=== PATIENT | male | born 1960 | race Caucasian/White ===

== ENCOUNTER 2016-12-08 10:03 | Observation (INO) ==
[2016-12-08 11:00] LABS: Bilirubin,Urine Negative (Negative); Blood,Urine Negative (Negative); Clarity,Urine Clear (Clear); Color,Urine Yellow (Yellow); Glucose,Urine (UA) Normal (Normal); Ketones,Urine Negative (Negative); Leukocyte Esterase,Urine Negative (Negative); Nitrite,Urine Negative (Negative); PH,Urine 6.5 pH Units (5.0-8.0); Protein,Urine Negative (Neg-Trace); Specific Gravity,Urine 1.008 (1.010-1.025); Urobilinogen,Urine Normal (Normal)
--- NOTE | 2016-12-08 11:04 | Emergency Department Note ---
START Narrative - START START: I examined this patient and my medical decision-making was reviewed with the [employer]/PA/Advanced Practice Nurse/Resident Physician. I agree with the documented findings, disposition and treatment plan as described except to the extent set forth below.
--- NOTE | 2016-12-08 11:09 | Emergency Department Note ---
Disposition Clinical Impression: Failure of outpatient treatment Diverticulitis of intestine with perforation and abscess Qualifiers: Diverticulitis site: large intestine Diverticulitis bleeding: without bleeding Qualified Code(s): K57.20 - Diverticulitis of large intestine with perforation and abscess without bleeding Disposition: Admitted As Inpatient Condition: Good Time of Disposition: 15:09 Abdominal Pain HPI - General Chief Complaint: ED Abdominal Pain Stated Complaint: ABD Pain Time Seen by Provider: 12/08/16 10:14 Source: patient Nursing Notes Reviewed: Yes Vital Signs Reviewed: Yes - History of Present Illness HPI Narrative: Mr. Abraham, a 56yo male, presents from home by POV with concerns of left lower quadrant abdominal pain. Patient has a history of this and is currently being managed by Dr. Syed with by mouth antibiotics for diagnosis of diverticulitis with abscess tracking to his bladder. Patient notes that since last night, he has had left lower quadrant pain with any bumps in the vehicle. When this happened in the past, Dr. Syed increase the strength of his antibiotic. He is currently on Cipro and Flagyl. He did call Dr. Syed's office and left a message with the nurse and has not heard back yet. He states the next step is likely surgery. He has associated nausea. He also notes his stools are becoming progressively more dark. No history of GI bleed. No current anticoagulant or antiplatelet. No iron supplement. ROS: Positive: Left lower quadrant pain worsening on Cipro and Flagyl, nausea Negative: Fever, chills, vomiting, other abdominal pain, dyspnea, chest pain, back pain, urinary symptoms Pain Scale: 7 - Related Data Home Medications Medication Instructions Recorded Confirmed Albuterol Sulfate [Albuterol 2 puff IH Q6HR PRN 12/08/16 12/08/16 Inhaler] Beclomethasone Diprop 80mcg [Qvar 3 puff IH BID 12/08/16 12/08/16 80 mcg] Ciprofloxacin HCl [Cipro] 500 mg PO BID 12/08/16 12/08/16 Multivit-Min/FA/Lycopen/Lutein 1 tab PO DAILY 12/08/16 12/08/16 [Centrum Silver Men Tablet] Omeprazole [PriLOSEC] 20 mg PO DAILY 12/08/16 12/08/16 metroNIDAZOLE [Flagyl] 500 mg PO BID 06/19/17 06/19/17 Allergies Allergy/AdvReac Type Severity Reaction Status Date / Time No Known Allergies Allergy Verified 12/08/16 14:03 All systems ED: reviewed and negative except as stated. Abdominal Pain PMH - Past Medical History Medical history: Reports: asthma Male Surgical History: Reports: hip replacement Psychiatric history: Reports: no psych history - Social History Smoking status: Current every day smoker Alcohol use: Reports: occasionally Drug use: Reports: none Physical Exam Vital Signs Reviewed General: Patient is alert, oriented, and in no acute distress. HEENT: No facial asymmetry. Head is normocephalic and atraumatic. PERRLA. Trachea midline. Cardiovascular: Heart regular rate and rhythm without clicks, rubs, gallops, or murmurs. No JVD. PMI nondisplaced. Respiratory: Symmetric chest rise with good respiratory effort. Bilateral breath sounds are clear without wheezing, crackles, or rhonchi. Abdomen: Bowel sounds present normoactive x-4 quadrants. Abdomen is soft, nondistended. Tenderness in left lower quadrant with radiation to hypogastrium. Positive rising. Positive Naldo. Psych: Patient's affect is appropriate for situation. - General Limitations: no limitations General appearance: alert Course Course Narrative: Patient is comfortable at this time and denies need for analgesia. We will draw lab work including lactate as well as CT abdomen and pelvis with IV contrast. Lab work has returned with leukocytosis. Otherwise unremarkable; specifically negative lactate. CTs returned showing improvement in the patient's previously scanned abscess. Of concern, patient is symptomatic and has failed 2 week outpatient course of Cipro and Flagyl. I discussed this with on-call surgeon for [facility], Dr. Figueroa, who agrees to follow the patient. I discussed the patient with the admitting hospitalist, Dr. Workman, who agrees to accept the patient. We will place on empiric Zosyn at this time. Patient remains comfortable and stable. He has denied any need for analgesia throughout his stay. Vital Signs Temperature 98.3 F 12/08/16 10:10 Pulse Rate 73 12/08/16 10:10 Respiratory Rate 18 12/08/16 10:10 Blood Pressure 138/98 12/08/16 10:10 O2 Sat by Pulse Oximetry 95 12/08/16 10:10 Temperature 97.5 F L 12/08/16 14:43 Pulse Rate 63 12/08/16 14:43 Respiratory Rate 18 12/08/16 14:43 Blood Pressure 142/88 12/08/16 14:43 O2 Sat by Pulse Oximetry 97 12/08/16 14:43 Oxygen Delivery Oxygen Delivery Room Air Abdominal Pain - Lab Data Result diagrams: 12/08/16 11:15 12/08/16 11:15 Lab Results 12/08/16 12/08/16 12/08/16 Range/Units 10:21 11:15 11:15 WBC 16.4 H (4.3-11.1) K/mcL RBC 4.42 (4.19-5.50) M/mcL Hgb 13.6 (12.9-16.9) g/dL Hct 39.9 (37.5-50.1) % MCV 90.3 (83.0-100.0) fL MCH 30.8 (28.0-33.3) pg MCHC 34.1 (31.6-35.5) g/dL RDW 14.6 H (11.5-14.5) % Plt Count 290 (140-400) K/mcL MPV 9.6 (9.4-12.4) fL Immature Gran % 0.7 (0-4) % Seg Neutrophils % 77.7 % Lymphocytes % 14.1 % Monocytes % 5.9 % Eosinophils % 1.0 % Basophils % 0.6 % Neutrophils # 12.7 H (1.6-8.9) K/mcL Lymphocytes # 2.3 (0.6-4.6) K/mcL Monocytes # 1.0 (0.0-1.3) K/mcL Eosinophils # 0.2 (0.0-0.6) K/mcL Basophils # 0.1 (0.0-0.2) K/mcL Sodium 137 (136-145) mEq/L Potassium 3.5 (3.5-4.5) mEq/L Chloride 107 (98-109) mEq/L Carbon Dioxide 22 (19-29) mEq/L BUN 11 (8-26) mg/dL Creatinine 0.68 L (0.72-1.25) mg/dL Est GFR ( Amer) > 60 (> 60) Est GFR (Non-Af Amer) > 60 (> 60) BUN/Creatinine Ratio 16 (6-26) Glucose 103 H (70-99) mg/dL Calculated Osmolality 284 (280-300) Lactic Acid (0.5-2.2) mmol/L Calcium 9.0 (8.6-10.8) mg/dL Urine Color Yellow (Yellow) Urine Clarity Clear (Clear) Urine pH 6.5 (5.0-8.0) pH Units Ur Specific [place] 1.008 L (1.010-1.025) Urine Protein Negative (Neg-Trace) mg/dL Urine Glucose (UA) Normal (Normal) mg/dL Urine Ketones Negative (Negative) mg/dL Urine Blood Negative (Negative) Urine Nitrite Negative (Negative) Urine Bilirubin Negative (Negative) Urine Urobilinogen Normal (Normal) mg/dL Ur Leukocyte Esterase Negative (Negative) Ur Culture Indicated? NO (NO) 12/08/16 Range/Units 11:15 WBC (4.3-11.1) K/mcL RBC (4.19-5.50) M/mcL Hgb (12.9-16.9) g/dL Hct (37.5-50.1) % MCV (83.0-100.0) fL MCH (28.0-33.3) pg MCHC (31.6-35.5) g/dL RDW (11.5-14.5) % Plt Count (140-400) K/mcL MPV (9.4-12.4) fL Immature Gran % (0-4) % Seg Neutrophils % % Lymphocytes % % Monocytes % % Eosinophils % % Basophils % % Neutrophils # (1.6-8.9) K/mcL Lymphocytes # (0.6-4.6) K/mcL Monocytes # (0.0-1.3) K/mcL Eosinophils # (0.0-0.6) K/mcL Basophils # (0.0-0.2) K/mcL Sodium (136-145) mEq/L Potassium (3.5-4.5) mEq/L Chloride (98-109) mEq/L Carbon Dioxide (19-29) mEq/L BUN (8-26) mg/dL Creatinine (0.72-1.25) mg/dL Est GFR ( Amer) (> 60) Est GFR (Non-Af Amer) (> 60) BUN/Creatinine Ratio (6-26) Glucose (70-99) mg/dL Calculated Osmolality (280-300) Lactic Acid 0.8 (0.5-2.2) mmol/L Calcium (8.6-10.8) mg/dL Urine Color (Yellow) Urine Clarity (Clear) Urine pH (5.0-8.0) pH Units Ur Specific [place] (1.010-1.025) Urine Protein (Neg-Trace) mg/dL Urine Glucose (UA) (Normal) mg/dL Urine Ketones (Negative) mg/dL Urine Blood (Negative) Urine Nitrite (Negative) Urine Bilirubin (Negative) Urine Urobilinogen (Normal) mg/dL Ur Leukocyte Esterase (Negative) Ur Culture Indicated? (NO)
[2016-12-08 11:26] LABS: Basophils # 0.1 K/mcL (0.0-0.2); Basophils % 0.6 %; Eosinophils # 0.2 K/mcL (0.0-0.6); Hematocrit 39.9 % (37.5-50.1); Hemoglobin 13.6 g/dL (12.9-16.9); Immature Granulocytes % 0.7 % (0-4); Lymphocytes # 2.3 K/mcL (0.6-4.6); Lymphocytes % 14.1 %; Mean Corpuscular HGB Conc 34.1 g/dL (31.6-35.5); Mean Corpuscular Hemoglobin 30.8 pg (28.0-33.3); Mean Corpuscular Volume 90.3 fL (83.0-100.0); Mean Platelet Volume 9.6 fL (9.4-12.4); Monocytes % 5.9 %; Neutrophils # 12.7 K/mcL (1.6-8.9); Platelet Count 290 K/mcL (140-400); Red Blood Count 4.42 M/mcL (4.19-5.50); Red Cell Distribution Width 14.6 % (11.5-14.5); Segmented Neutrophils % 77.7 %
[2016-12-08 11:45] LABS: BUN/Creatinine Ratio 16 (6-26); Blood Urea Nitrogen 11 mg/dL (8-26); Carbon Dioxide 22 mEq/L (19-29); Chloride 107 mEq/L (98-109); Glucose 103 mg/dL (70-99); Osmolality,Calculated 284 (280-300); Potassium 3.5 mEq/L (3.5-4.5); Sodium 137 mEq/L (136-145); eGFR For African Americans > 60 (> 60); eGFR For Non-African Americans > 60 (> 60)
[2016-12-08] MEDS ORDERED: Piperacillin/Tazobactam 3.375 GM in D5% in Water (Mini-Bag+) 100 ML IVPB ONE (13:45)
[2016-12-08] MEDS ORDERED: Acetaminophen 325 MG TABLET PO PRN (15:32)
[2016-12-08] MEDS ORDERED: Naloxone 0.4 MG/ML INJ IVP PRN (15:32)
[2016-12-08] MEDS ORDERED: Ondansetron ODT 4 MG TAB.RAPDIS SL PRN (15:32)
[2016-12-08] MEDS ORDERED: *HR* HYDROcodone/Acet 5/325 mg TABLET PO PRN (15:32)
[2016-12-08] MEDS ORDERED: traMADol 50 MG TABLET PO PRN (16:03)
--- NOTE | 2016-12-08 16:18 | Internal Med History&Physical ---
<Laurent Workman - Last Filed: 12/08/16 20:27> Date of Encounter: 12/08/16 Internal Medicine - H&P: HPI History of present illness: Mr. Abraham is a 56 year old male Internal Medicine - H&P: Meds Albuterol Sulfate [Albuterol Inhaler] 2 puff IH Q6HR PRN 12/08/16 [History] Beclomethasone Diprop 80mcg [Qvar 80 mcg] 3 puff IH BID 12/08/16 [History] Ciprofloxacin HCl [Cipro] 500 mg PO BID 12/08/16 [History] Multivit-Min/FA/Lycopen/Lutein [Centrum Silver Men Tablet] 1 tab PO DAILY [History] Omeprazole [PriLOSEC] 20 mg PO DAILY 12/08/16 [History] metroNIDAZOLE [Flagyl] 500 mg PO BID 12/08/16 [History] Allergies acetaminophen Allergy (Severe, Verified 12/08/16 15:49) Hives Patient informed me that he was allergic to percocet and his doctor said to stay away from acetaminophen during admission assessment. All Systems PM: A 10-system review of systems was performed and is negative for pertinent findings except as documented above in the HPI. - Constitutional Vitals: Temp Pulse Resp BP Pulse Ox 97.5 F L 51 14 106/65 96 12/08/16 19:10 12/08/16 19:10 12/08/16 19:10 12/08/16 19:10 12/08/16 19:10 Internal Med - H&P Results - Labs CBC & Chem 7: 12/08/16 11:15 12/08/16 11:15 - Attending Attestation I examined this patient and my medical decision-making was reviewed with the Advanced Practice Nurse. I agree with the documented findings, disposition and treatment plan as described except to the extent set forth below. Patient reports his abdominal pain has resolved. He has a nontender. CT of the abdomen and pelvis was reviewed and shows diverticulitis with small amount of gas which has decreased since previous study in October 2016. Plan: Broad-spectrum IV antibiotic. Surgical consult. Clear liquid diet. Pain control. <Laura Guerrero - Last Filed: 12/08/16 22:59> Date of Encounter: 12/08/16 Time of Encounter: 16:12 Assessment and Plan (1) Diverticulitis of intestine with perforation and abscess Status: Chronic Patient with persistent abscess related to diverticulitis and has left lower quadrant, seen on CT. Patient has received Cipro, and Flagyl as an outpatient, however abscess persists. Vision has been able to tolerate by mouth, has normal appetite, and normal bowel movements. He denies any nausea, vomiting, or diarrhea. Her blood cell count is elevated to 16.4. Zosyn initiated every 8 hours. Surgery consulted and will see patient. Qualifiers: Diverticulitis site: large intestine Diverticulitis bleeding: without bleeding Qualified Code(s): K57.20 - Diverticulitis of large intestine with perforation and abscess without bleeding (2) Failure of outpatient treatment Status: Acute Patient was diagnosed with diverticulitis in August, was initiated on Augmentin at that time, continued to have problems and seen by Dr. Syed surgery, who started him on Cipro, and Flagyl. He has been found to have a left lower quadrant abscess extending from his colon to his bladder. Today's CT shows that it is improved, however still persists. Surgery consult. Antibiotics switched to Zosyn. (3) Asthma Status: Chronic Patient with diagnosis of asthma, denies any increased shortness of breath, wheezing, or coughing. He is not in exacerbation. Continue home dose of Qvar, and albuterol when necessary. Qualifiers: Asthma severity: mild intermittent Asthma complication type: uncomplicated Qualified Code(s): J45.20 - Mild intermittent asthma, uncomplicated (4) Smoker Status: Acute Patient smokes 1PPD. Discussed smoking cessation and offered encouragement. Smoking cessation education ordered. Nicotine patch ordered. (5) DVT prophylaxis Status: Acute anti-embolic stockings lovenox 40mg SQ daily Internal Medicine - H&P: HPI Chief complaint: abdominal pain Admitted From: Emergency Dept Plans for Post Hospital Care: Home History of present illness: Mr. Abraham is a 56 year old male with history of asthma and GERD presented to the emergency department today with complaints of left lower quadrant abdominal pain. Patient reports that he has had issues since August, he was diagnosed with diverticulitis and started on Augmentin at that time, he was referred to Dr. Syed to switch his antibiotics to Cipro, and Flagyl. CT showed diverticulitis with abscess at that time. Patient reports he has been on the Cipro and Flagyl, but he can tell that his abscess is not going away, as his pain has not gone away. He reports he is able to eat, appetite is good, denies any nausea or vomiting. He denies any diarrhea, or constipation, and reports he has regular bowel movements. He denies any fever, chills or sweats. He reports his pain is constant in his left lower quadrant, exacerbated by palpation or pressure, movement and relieved with pain medicine. Evaluation in the emergency department revealed an elevated white blood cell count of 16.4. UA was negative for infection, lactate was normal at 0.8. To the abdomen and pelvis showed inflammatory changes again seen extending between the proximal sigmoid colon and the left superior aspect of the bladder wall, in comparison to the prior exam on 12/08/16, small associated loculated collections of fluid and air are decreased in size, with the largest measuring 11 x 6 mm immediately adjacent to the bladder wall, no collections amenable to drainage are seen, no evidence of colovesicular fistula, moderate diverticulosis. On exam, patient alert and oriented, in no acute distress. Heart had regular rate and rhythm, lungs are clear bilaterally to auscultation abdomen was tender to deep palpation in the left lower quadrant, soft, normal bowel sounds. Past Med Surg Social Fam HX - Past Medical History Medical history: asthma Psychiatric history: no psych history - Past Surgical History Surgical History: hip replacement - Social History Smoking Status: Current every day smoker Smokeless Tobacco Status: No Alcohol use: occasionally Drug use: none - Family History Mother Adopted: Yes Name: Sydney Abraham Age: 78 Family Member Ethnicity: Non- Living Status: Cause of : Abdomenal aneurism Hx Family Cardiac Disorders: No Hx Family Respiratory Disorders: No Hx Family Cancer: No Hx Family GI Disorders: No Hx Family Genitourinary Disorders: No Hx Family Endocrine Disorder: No Hx Family Musculoskeletal Disorders: Yes (Osteoporosis) Hx Family Neuromuscular Disorders: No Hx Family Neurologic Disorders: No Hx Family HEENT Disorders: No Hx Family Autoimmune Disorders: No Hx Family Reproductive Disorders: No Hx Family Psychosocial Disorders: No Hx Family Medical Disorders: No Father Living Status: Hx Family Respiratory Disorders: Yes All Systems PM: A 10-system review of systems was performed and is negative for pertinent findings except as documented above in the HPI. - Constitutional Constitutional: no chills, no fever(s), no night sweats - EENT Eyes: no change in vision, no discharge, no pain, no photophobia Ears: no ear discharge, no ear pain, no tinnitus Nose, mouth and throat: no dysphagia, no nasal discharge, no neck pain, no sore throat - Cardiovascular Cardiovascular ROS IM: no chest pain, no diaphoresis, no dyspnea, no lightheadedness, no palpitations, no syncope - Respiratory Respiratory: no cough, no dyspnea, no wheezing, no excessive phlegm production - Gastrointestinal Gastrointestinal: abdominal pain, no diarrhea, no hematemesis, no hematochezia, no melena, no nausea, no vomiting - Musculoskeletal Musculoskeletal ROS IM: no numbness, no tingling - Integumentary Integumentary IM: no rash, no unusual bruising - Neurological Neurological ROS: no confusion, no convulsions, no focal weakness, no numbness, no tingling, no tremor(s) - Hematologic/Lymphatic Hematologic/Lymphatic: no easy bruising - Constitutional Vitals: Temp Pulse Resp BP Pulse Ox 97.5 F L 63 18 142/88 97 12/08/16 14:43 12/08/16 14:43 12/08/16 14:43 12/08/16 14:43 12/08/16 14:43 General appearance: Present: A&O X 3, pleasant, no acute distress - Head Head exam: Present: atraumatic, normocephalic - Eye Eye exam: Present: PERRL, conjuntiva pink, sclera anicteric Pupils: Present: PERRL - Neck Neck exam general surgery: Present: supple, trachea midline. Absent: lymphadenopathy - Respiratory Respiratory exam: Present: CTAB. Absent: accessory muscle use, rales, rhonchi, wheezes - Cardiovascular Cardiovascular exam: Present: RRR, +S1, +S2. Absent: diastolic murmur, gallop, rubs, systolic murmur - GI/Abdominal GI/Abdominal exam: Present: normal bowel sounds, soft, no peritoneal signs. Absent: distended, tenderness - Extremities Exam Extremities exam: Present: warm, radial pulses palpable and symetrical. Absent : calf tenderness, cyanotic, pedal edema - Neurological Exam Neurological exam: Present: CN II-XII intact, oriented X3, no focal deficits. Absent: pronater drift, facial droop, speech deficit - Skin Skin exam: Present: dry, intact Internal Med - H&P Results - Labs CBC & Chem 7: 12/08/16 11:15 12/08/16 11:15 Labs: All Lab Results (24 Hours) 12/08/16 12/08/16 12/08/16 Range/Units 10:21 11:15 11:15 WBC 16.4 H (4.3-11.1) K/mcL RBC 4.42 (4.19-5.50) M/mcL Hgb 13.6 (12.9-16.9) g/dL Hct 39.9 (37.5-50.1) % MCV 90.3 (83.0-100.0) fL MCH 30.8 (28.0-33.3) pg MCHC 34.1 (31.6-35.5) g/dL RDW 14.6 H (11.5-14.5) % Plt Count 290 (140-400) K/mcL MPV 9.6 (9.4-12.4) fL Immature Gran % 0.7 (0-4) % Seg Neutrophils % 77.7 % Lymphocytes % 14.1 % Monocytes % 5.9 % Eosinophils % 1.0 % Basophils % 0.6 % Neutrophils # 12.7 H (1.6-8.9) K/mcL Lymphocytes # 2.3 (0.6-4.6) K/mcL Monocytes # 1.0 (0.0-1.3) K/mcL Eosinophils # 0.2 (0.0-0.6) K/mcL Basophils # 0.1 (0.0-0.2) K/mcL Sodium 137 (136-145) mEq/L Potassium 3.5 (3.5-4.5) mEq/L Chloride 107 (98-109) mEq/L Carbon Dioxide 22 (19-29) mEq/L BUN 11 (8-26) mg/dL Creatinine 0.68 L (0.72-1.25) mg/dL Est GFR ( Amer) > 60 (> 60) Est GFR (Non-Af Amer) > 60 (> 60) BUN/Creatinine Ratio 16 (6-26) Glucose 103 H (70-99) mg/dL Calculated Osmolality 284 (280-300) Lactic Acid (0.5-2.2) mmol/L Calcium 9.0 (8.6-10.8) mg/dL Urine Color Yellow (Yellow) Urine Clarity Clear (Clear) Urine pH 6.5 (5.0-8.0) pH Units Ur Specific [place] 1.008 L (1.010-1.025) Urine Protein Negative (Neg-Trace) mg/dL Urine Glucose (UA) Normal (Normal) mg/dL Urine Ketones Negative (Negative) mg/dL Urine Blood Negative (Negative) Urine Nitrite Negative (Negative) Urine Bilirubin Negative (Negative) Urine Urobilinogen Normal (Normal) mg/dL Ur Leukocyte Esterase Negative (Negative) Ur Culture Indicated? NO (NO) 12/08/16 Range/Units 11:15 WBC (4.3-11.1) K/mcL RBC (4.19-5.50) M/mcL Hgb (12.9-16.9) g/dL Hct (37.5-50.1) % MCV (83.0-100.0) fL MCH (28.0-33.3) pg MCHC (31.6-35.5) g/dL RDW (11.5-14.5) % Plt Count (140-400) K/mcL MPV (9.4-12.4) fL Immature Gran % (0-4) % Seg Neutrophils % % Lymphocytes % % Monocytes % % Eosinophils % % Basophils % % Neutrophils # (1.6-8.9) K/mcL Lymphocytes # (0.6-4.6) K/mcL Monocytes # (0.0-1.3) K/mcL Eosinophils # (0.0-0.6) K/mcL Basophils # (0.0-0.2) K/mcL Sodium (136-145) mEq/L Potassium (3.5-4.5) mEq/L Chloride (98-109) mEq/L Carbon Dioxide (19-29) mEq/L BUN (8-26) mg/dL Creatinine (0.72-1.25) mg/dL Est GFR ( Amer) (> 60) Est GFR (Non-Af Amer) (> 60) BUN/Creatinine Ratio (6-26) Glucose (70-99) mg/dL Calculated Osmolality (280-300) Lactic Acid 0.8 (0.5-2.2) mmol/L Calcium (8.6-10.8) mg/dL Urine Color (Yellow) Urine Clarity (Clear) Urine pH (5.0-8.0) pH Units Ur Specific [place] (1.010-1.025) Urine Protein (Neg-Trace) mg/dL Urine Glucose (UA) (Normal) mg/dL Urine Ketones (Negative) mg/dL Urine Blood (Negative) Urine Nitrite (Negative) Urine Bilirubin (Negative) Urine Urobilinogen (Normal) mg/dL Ur Leukocyte Esterase (Negative) Ur Culture Indicated? (NO) - Diagnostic Studies CT scan - abdomen Additional comments: Abdomen/Pelvis CT 12/08/16 11:00 IMPRESSION: 1. Inflammatory changes are again seen extending between the proximal sigmoid colon and the left superior aspect of the bladder wall. In comparison to the prior exam, small associated loculated collections of fluid and air are decreased in size, with the largest measuring 11 x 6 mm immediately adjacent to the bladder wall. No collections amenable to percutaneous drainage are seen. No air is seen in the bladder lumen to specifically suggest a patent colovesical fistula. 2. Moderate diverticulosis. D/ / 12/08/2016 13:03:13 Babatunde Carmichael MD / supaay Interpreting Provider: Babatunde Carmichael MD
--- NOTE | 2016-12-08 18:10 | General Surgery Consult Note ---
Date of Encounter: 12/11/16 Time of Encounter: 18:07 Assessment and Plan (1) Diverticulitis of intestine with perforation and abscess Status: Chronic I explained to the patient that I personally reviewed the CT scan images and report. Ears that the abscess collections actually continued to decrease in size despite his new also worsened pelvic pain recurred yesterday. I think he is continuing to improve and I agree with antibiotics and current diet. Will follow with you and I explained to the patient that I am hopeful that the abscess will continue to resolve without having any type of surgical intervention at this time. Qualifiers: Diverticulitis site: large intestine Diverticulitis bleeding: without bleeding Qualified Code(s): K57.20 - Diverticulitis of large intestine with perforation and abscess without bleeding History of Present Illness Consult date: 12/08/16 Reason for consult: abdominal pain Requesting physician: Laura Guerrero History of present illness: the patient is a 56 year old male known to my service. He has a history of perforated sigmoid diverticulitis with an abscess that is been treated with antibiotics. He states that today he had the onset of lower abdominal pain but denies any diarrhea or constipation and denies any nausea or vomiting. He states that his pain is under control at this time and denies any diarrhea or constipation. He denies any pain with urination or bowel movements. He denies any fever or chills and because of the worsening lower abdominal/pelvic pain he presented to the emergency room for further evaluation. Past Med Surg Social Fam HX - Past Medical History Medical history: asthma Psychiatric history: no psych history - Past Surgical History Surgical History: hip replacement - Social History Smoking Status: Current every day smoker Smokeless Tobacco Status: No Alcohol use: occasionally Drug use: none - Family History Mother Adopted: Yes Name: Sydney Abraham Age: 78 Family Member Ethnicity: Non- Living Status: Cause of : Abdomenal aneurism Hx Family Cardiac Disorders: No Hx Family Respiratory Disorders: No Hx Family Cancer: No Hx Family GI Disorders: No Hx Family Genitourinary Disorders: No Hx Family Endocrine Disorder: No Hx Family Musculoskeletal Disorders: Yes (Osteoporosis) Hx Family Neuromuscular Disorders: No Hx Family Neurologic Disorders: No Hx Family HEENT Disorders: No Hx Family Autoimmune Disorders: No Hx Family Reproductive Disorders: No Hx Family Psychosocial Disorders: No Hx Family Medical Disorders: No Father Living Status: Hx Family Respiratory Disorders: Yes Medications and Allergies Albuterol Sulfate [Albuterol Inhaler] 2 puff IH Q6HR PRN 12/08/16 [History] Beclomethasone Diprop 80mcg [Qvar 80 mcg] 3 puff IH BID 12/08/16 [History] Ciprofloxacin HCl [Cipro] 500 mg PO BID 12/08/16 [History] Multivit-Min/FA/Lycopen/Lutein [Centrum Silver Men Tablet] 1 tab PO DAILY [History] Omeprazole [PriLOSEC] 20 mg PO DAILY 12/08/16 [History] metroNIDAZOLE [Flagyl] 500 mg PO BID 12/08/16 [History] Allergies acetaminophen Allergy (Severe, Verified 12/08/16 15:49) Hives Patient informed me that he was allergic to percocet and his doctor said to stay away from acetaminophen during admission assessment. Review of Systems All systems PM: reviewed and no additional remarkable complaints except as stated All systems PM: A 10-system review of systems was performed and is negative for pertinent findings except as documented above in the HPI. General Surgery Exam Initial Vital Signs Temp Pulse Resp BP Pulse Ox 98.3 F 73 18 138/98 95 12/08/16 10:10 12/08/16 10:10 12/08/16 10:10 12/08/16 10:10 12/08/16 10:10 - General physical appearance well developed, well nourished, no distress - Eyes PERRL, normal ocular movement - Respiratory normal expansion, normal respiratory effort, clear to auscultation - Cardiovascular Cardiovascular exam: Present: RRR, no murmurs/rubs/gallops - Abdomen Abdomen general surgery: Present: bowel sounds present, soft, tender (mild tendernes in the pelvis to moderate palpation.) - Neurologic Present: CN 2-12 grossly intact - Musculoskeletal Present: other (No clubbing, cyanosis, or edema) Exam Initial Vital Signs Temp Pulse Resp BP Pulse Ox 98.3 F 73 18 138/98 95 12/08/16 10:10 12/08/16 10:10 12/08/16 10:10 12/08/16 10:10 12/08/16 10:10 Results - Labs 12/08/16 11:15 12/08/16 11:15 Abnormal lab results WBC 16.4 K/mcL (4.3-11.1) H 12/08/16 11:15 RDW 14.6 % (11.5-14.5) H 12/08/16 11:15 Neutrophils # 12.7 K/mcL (1.6-8.9) H 12/08/16 11:15 Creatinine 0.68 mg/dL (0.72-1.25) L 12/08/16 11:15 Glucose 103 mg/dL (70-99) H 12/08/16 11:15 Ur Specific Stoddard 1.008 (1.010-1.025) L 12/08/16 10:21 All other labs normal. Consult Discharge Plan - Plan Referrals: Jessica Espinoza CNP [Primary Care Provider] - Han Syed MD [Partnered Physician] -
[2016-12-08 19:11] VITALS: BP 106/65
[2016-12-08] MEDS ORDERED: Piperacillin/Tazobactam 3.375 GM in D5% in Water (Mini-Bag+) 100 ML IVPB SCH (21:00)
[2016-12-08] MEDS ORDERED: Beclomethasone 80mcg MDI IH SCH (22:00)
--- NOTE | 2016-12-08 22:27 | Discharge Summary ---
Date of Encounter: 12/08/16 Time of Encounter: 22:22 - Discharge Diagnosis (1) Diverticulitis of intestine with perforation and abscess Priority: Primary Status: Chronic Qualifiers: Diverticulitis site: large intestine Diverticulitis bleeding: without bleeding Qualified Code(s): K57.20 - Diverticulitis of large intestine with perforation and abscess without bleeding (2) Failure of outpatient treatment Priority: Secondary Status: Acute (3) Asthma Priority: Secondary Status: Chronic Qualifiers: Asthma severity: mild intermittent Asthma complication type: uncomplicated Qualified Code(s): J45.20 - Mild intermittent asthma, uncomplicated (4) Smoker Priority: Secondary Status: Acute (5) DVT prophylaxis Priority: Secondary Status: Acute - Discharge Medications Home Medications: Albuterol Sulfate [Albuterol Inhaler] 2 puff IH Q6HR PRN 12/08/16 [History] Beclomethasone Diprop 80mcg [Qvar 80 mcg] 3 puff IH BID 12/08/16 [History] Ciprofloxacin HCl [Cipro] 500 mg PO BID 12/08/16 [History] Multivit-Min/FA/Lycopen/Lutein [Centrum Silver Men Tablet] 1 tab PO DAILY [History] Omeprazole [PriLOSEC] 20 mg PO DAILY 12/08/16 [History] metroNIDAZOLE [Flagyl] 500 mg PO BID 12/08/16 [History] Allergies/Adverse Reactions: Allergies acetaminophen Allergy (Severe, Verified 12/08/16 15:49) Hives Patient informed me that he was allergic to percocet and his doctor said to stay away from acetaminophen during admission assessment. Date of admission: 12/08/16 13:55 Primary care physician: Jessica Espinoza CNP Consults: 12/08/16 15:40 Consult to Nutrition [CONS] Routine Comment: Consulting Provider: NUTRITION Reason for Dietary Consult: MST Score Discharging clinician: Laura Guerrero - Patient Status Disposition: Home, Self-Care Condition: Good Functional capacity at discharge: independent ambulation - Discharge Instructions Follow Up With: Jessica Espinoza CNP [Primary Care Provider] - Han Syed MD [Partnered Physician] - - Diet and Activity Activity: resume usual activities as tolerated Diet: advance to your usual diet Interval History: Patient presented with concerns of worsening abdominal abscess due to LLQ pain. He had been receiving cipro and flagyl as an outpatient and following with Dr. Syed. CT of abdomen/pelvis showed improving abscess. Patient was given zosyn and consult to surgery. Dr. Syed assessed patient and does not plan for surgery. Plan was for patient to spend the night for observation and continue zosyn for known complicated diverticulitis with abscess, patient desires to leave AMA. Risks have been explained to patient and he still desires to leave. Hospital course: Mr. Abraham is a 56 year old male - Time Spent with Patient Total time spent providing and/or coordinating discharge services: Less than 30 minutes - Constitutional Vitals: Temp Pulse Resp BP Pulse Ox 97.5 F L 51 14 106/65 96 12/08/16 19:10 12/08/16 19:10 12/08/16 19:10 12/08/16 19:10 12/08/16 19:10 General appearance: Present: A&O X 3, pleasant, no acute distress - Head Head exam: Present: atraumatic, normocephalic - Eye Eye exam: Present: PERRL, conjuntiva pink, sclera anicteric Pupils: Present: PERRL - Neck Neck exam general surgery: Present: supple, trachea midline. Absent: lymphadenopathy - Respiratory Respiratory exam: Present: CTAB. Absent: accessory muscle use, rales, rhonchi, wheezes - Cardiovascular Cardiovascular exam: Present: RRR, +S1, +S2. Absent: diastolic murmur, gallop, rubs, systolic murmur - GI/Abdominal GI/Abdominal exam: Present: normal bowel sounds, soft, no peritoneal signs. Absent: distended, tenderness - Extremities Exam Extremities exam: Present: warm, radial pulses palpable and symetrical. Absent : calf tenderness, cyanotic, pedal edema - Neurological Exam Neurological exam: Present: CN II-XII intact, oriented X3, no focal deficits. Absent: pronater drift, facial droop, speech deficit - Skin Skin exam: Present: dry, intact
[2016-12-09] MEDS ORDERED: 0.9 % Sodium Chloride 1,000 ML IVC SCH (00:01)
[2016-12-09] MEDS ORDERED: *HR* Enoxaparin 40 MG/0.4 ML SYRINGE SQ SCH (07:00)
[2016-12-09] MEDS ORDERED: Nicotine 21 MG PATCH.TD24 TD SCH (09:00)
== END 2016-12-08 22:20 | disposition home or self-care (01) ==
LOC: EMEROO 10:03 → 3ANU 10:03
PROVIDERS: ADMIT Internal Medicine; ATTEND Internal Medicine

== ENCOUNTER 2017-01-30 09:53 | Inpatient (IN) ==
[2017-01-30] MEDS ORDERED: Lidocaine -MPF 4% 5 ML AMPUL ONE (10:03)
[2017-01-30] MEDS ORDERED: Ondansetron 4 MG/2 ML VIAL ONE (10:03)
[2017-01-30] MEDS ORDERED: *HR* FentaNYL (PF) 100 MCG/2 ML VIAL ONE ×2 (10:03→15:00)
[2017-01-30] MEDS ORDERED: *HR* Rocuronium Bromide 50 MG/5 ML VIAL ONE ×2 (10:03→12:54)
[2017-01-30] MEDS ORDERED: *HR* Midazolam HCl 2 MG/2 ML VIAL ONE (10:03)
[2017-01-30] MEDS ORDERED: Dexamethasone 4 MG/ML VIAL ONE (10:03)
[2017-01-30] MEDS ORDERED: *HR* Phenylephrine 10 MG/ML VIAL ONE (10:03)
[2017-01-30] MEDS ORDERED: *HR* Propofol 200 MG/20 ML VIAL IVP ONE ×2 (10:03→15:53)
[2017-01-30] MEDS ORDERED: Lidocaine -MPF 2% 2 ML VIAL ONE (10:03)
[2017-01-30] MEDS ORDERED: EPHEDrine 50 MG/ML VIAL ONE (10:03)
[2017-01-30] MEDS ORDERED: *HR* Remifentanil 2 MG VIAL IVP ONE ×2 (10:04→13:43)
[2017-01-30] MEDS ORDERED: cefOXitin 2,000 MG in D5% in Water (Mini-Bag+) 100 ML IVPB ONE (10:10)
[2017-01-30] MEDS ORDERED: Lidocaine -MPF 1% 2 ML VIAL ID ONE (10:10)
[2017-01-30] MEDS ORDERED: Albuterol 2.5 MG/3 ML NEBULIZER IH ONE (10:11)
--- NOTE | 2017-01-30 10:22 | Anesthesia Evaluation PreOp ---
Date of Encounter: 01/30/17 Time of Encounter: 10:19 - Past History Planned Operation: Lap. 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 HX Other Medical History: GERD Anesthesia History: No Prior Anesthetic Complications, Past Anesthesia (Left THR , colonoscopy) Alcohol Use: occasionally Drug use: none Medications and Allergies Albuterol Sulfate [Albuterol Inhaler] 2 puff IH Q6HR PRN 12/08/16 [History] Beclomethasone Diprop 80mcg [Qvar 80 mcg] 3 puff IH BID 12/08/16 [History] Ciprofloxacin HCl [Cipro] 500 mg PO BID 12/08/16 [History] Multivit-Min/FA/Lycopen/Lutein [Centrum Silver Men Tablet] 1 tab PO DAILY [History] Omeprazole [PriLOSEC] 20 mg PO DAILY 12/08/16 [History] metroNIDAZOLE [Flagyl] 500 mg PO BID 12/08/16 [History] Allergies acetaminophen Allergy (Severe, Verified 12/08/16 15:49) Hives Patient informed me that he was allergic to percocet and his doctor said to stay away from acetaminophen during admission assessment. - Meds/Allergy Pre-op Review Medications Reviewed: Yes Allergies Reviewed: Yes Beta Blockers on Current Med List: No Anesthesia Results - Labs Laboratory Tests 01/26/17 01/26/17 10:45 10:45 WBC 14.8 H Hgb 13.6 Hct 42.0 Plt Count 349 Sodium 140 Potassium 4.1 Chloride 109 Carbon Dioxide 22 BUN 15 Creatinine 0.69 L Anesthesia Exam O2 Sat Height 1.73 m Height 1.73 m Weight 79.379 kg Weight 79.379 kg O2 Sat by Pulse Oximetry 96 Vital Signs Temp Pulse Resp BP Pulse Ox 98.2 F 88 18 115/82 96 01/30/17 10:09 01/30/17 10:01/30/17 10:01/30/17 10:01/30/17 10:09 Height: 5'8'' Weight: 175# NPO (# of Hours): > 8 hrs Pain Scale: 0 Pain Scale Used: Numeric (1 - 10) - HEENT Pupil (Motor): Pupils equal, EOMI Mallampati: II Teeth: Normal Oral Opening: Greater than 3 - FOREIGN LANGUAGE PROFESSOR LOC: Oriented [employer]EIGN LANGUAGE PROFESSOR Motor: Normal RUE, Normal LUE, Normal RLE, Normal LLE, Normal Face FOREIGN LANGUAGE PROFESSOR Sensory: Normal: RUE, LUE, RLE, LLE, Face - Cardiac Rhythm: Regular Murmur: None JVD: No Carotid Bruit: No - Pulmonary Breath Sounds: bilateral Clear Respiratory Effort: Symmetrical Anesthesia Assess/Plan ASA Score: 2 Modified Iona Scale for Level of Consciousness: Cooperative, oriented, and tranquil Anesthetic Plan: General Autologous Blood: Yes Monitoring Plan: Standard Monitors Recovery Plan: PACU
--- NOTE | 2017-01-30 10:27 | History & Physical Report ---
Date of Encounter: 01/30/17 Time of Encounter: 10:27 24 Hour HP Update - Instructions Instructions: If the History and Physical is less than 30 days old and was completed prior to A.M. admission and or procedure and has NOT been updated on calendar day of procedure please complete this update prior to performing procedure. - Update Patient reports changes in Medical Condition: No Changes in examination, assessment, or condition: No Changes in Medication: No Preop tests/diagnostics Reviewed: Yes Pre-Op MRSA Screen: Negative Surgery Remains Indicated: Yes Consent for Planned Operative Procedure(s) Verified: Yes - Pre-Operative Checklist Preoperative Checklist Indicated: No Prophylactic Antibiotic Ordered: Yes Home Medications Include Beta Hardik: No Beta Hardik Taken Today (Day of Surgery): No Beta Hardik Taken Yesterday (Day Prior to Surgery): No Is VTE Prophylaxis Indicated?: NO
[2017-01-30] MEDS ORDERED: CefOXitin 1,000 MG VIAL ONE (10:30)
[2017-01-30] MEDS: Ringers Solution, Lactated 1,000 ML IVC SCH ×2 (10:31→13:26)
[2017-01-30] MEDS ORDERED: Albumin Human 5% 0 GM/0 ML VIAL ONE (10:36)
[2017-01-30] MEDS ORDERED: *HR* Labetalol 20 MG/4 ML SYRINGE IVP PRN (12:38)
[2017-01-30] MEDS ORDERED: *HR* Promethazine 25 MG/ML VIAL IVP PRN (12:38)
[2017-01-30] MEDS ORDERED: Ketorolac 30 MG/ML VIAL ONE (14:14)
[2017-01-30] MEDS ORDERED: *HR* HYDROmorphone 2 MG/ML SYRINGE ONE (14:14)
[2017-01-30] MEDS ORDERED: Neostigmine Methylsulfate 3 MG/3 ML SYRINGE ONE (14:17)
[2017-01-30] MEDS ORDERED: Ondansetron 4 MG/2 ML VIAL IVP PRN ×2 (15:12→16:51)
[2017-01-30] MEDS ORDERED: Naloxone 0.4 MG/ML INJ IVP PRN (15:12)
[2017-01-30] MEDS ORDERED: 0.9 % Sodium Chloride 1,000 ML IVC SCH (15:15)
[2017-01-30] MEDS ORDERED: *HR* HYDROmorphone (PF) 1 MG/ML SYRINGE IVP PRN (15:16)
[2017-01-30] MEDS: *HR* HYDROmorphone (PF) 1 MG/ML SYRINGE IVP PRN ×4 (15:22→16:15)
--- NOTE | 2017-01-30 15:28 | Operative Note ---
Date of procedure: 01/30/17 Pre-op diagnosis: Sigmoid diverticulitis with abscess Post-op diagnosis: same Procedure: Laparoscopic assisted sigmoid resection. Implants: 19 FR mike x 1 Anesthesia: ZHOU Surgeon: Han Syed Rack Cleaner Other: CARMEN Jones Tourniquet Time (Minutes): 80 Specimen: anastamotic rings, sigmid colon Condition: stable Disposition: PACU Procedure in Detail: Date of surgery: 01/30/17 After properly identifying the patient, the patient was brought to the operating room and placed in the supine position. After proper IV sedation was achieved followed by general endotracheal intubation, the patient's abdomen was prepped and draped in normal sterile fashion. A timeout was performed noting the patient's name and type of procedure to be performed. The patient was placed in the low lithotomy position and the perianal area was also prepped and draped in a normal fashion. An infraumbilical vision was made with a 15 blade scalpel (1cm length) followed by dissection through the rectus fascia and entry into the abdomen. A 12 mm port was placed through the incision and the abdomen was insufflated with carbon dioxide. A laparoscopic camera was placed through the port which showed no injury and a suprapubic 5 mm port and a left lower quadrant 5 mm port were placed under direct camera visualization. Visualization of the patient's left lower quadrant demonstrated a very adherent sigmoid segment against the sidewall. This was very firm and careful blunt dissection and Bovie cauterization was able to partially dissect a portion of the adherent sigmoid segment from the sidewall attachment. Because of the density of the adhesions the decision was made to go ahead and dissect the descending colon away from the sidewall attachments. A xiphoid 5 mm port and a right upper quadrant 5 mm port were then placed under visualization and the descending colon was retracted medially which allowed for dissection of the white line of Toldt away from the sidewall. This was carried up to the splenic flexure which was also dissected free with Bovie cauterization and utilization of a laparoscopic LigaSure. A portion of the omentum was dissected off the splenic flexure as well, allowing the distal transverse colon to be free and allowing easy mobility and medial rotation. After this was confirmed the decision was made to go ahead and convert this to the open procedure. All ports were then removed and a 15 blade scalpel was used to make an incision several centimeters above the umbilicus extending inferiorly to the pubic symphysis connecting the 2 laparoscopic incisions (the subumbilical and the suprapubic site). A Bookwalter was brought to the operative field and used to retract the fascia laterally. The adherent sigmoid segment was identified and dissected free from the sidewall with blunt dissection and Bovie cauterization. The abscess cavity was encountered with drainage of exudate which was immediately suctioned. The sigmoid colon and rectosigmoid junction was identified and noted to be free of disease and was transected with a KAUSHAL stapler. The thickened and dense sigmoid was retracted superiorly and the mesentery close to the bowel wall was transected with a handheld LigaSure. This was carried up towards the proximal sigmoid to an area of normal appearing bowel. The sigmoid colon at this level was then transected with a KAUSHAL stapler. The intervening segment was then removed from the operative field and submitted to pathology. The epiploic tissue surrounding the descending colonic stump was freed with Bovie cauterization and the decision was made to attempt a stapled anastomosis by transecting the descending colonic stapleline with Bovie cauterization and creating a pursestring with a 2-0 Prolene suture. Sizers were placed within the lumen which demonstrated that a 29-Mongolian EEA stapler would be appropriate. This was brought onto the operative field. And anvil was detached from the device in place within the lumen of the bowel and the purse-string was tied. The EEA stapler was then introduced through the anus and the male end was extruded above the level of the rectal staple line along the antimesenteric border. The anvil was connected and the EEA stapler was then retracted to its base and fired/stapled. The EEA stapler was withdrawn which demonstrated 2 intact anastomotic rings were submitted to pathology. The pelvis was then filled with normal saline solution containing Mefoxin and air was then introduced through the anus while the descending colon was clamped by hand which did not show any evidence of anastomotic leak i.e. no evidence of "bubbling." The abdomen was then irrigated once again with normal saline solution containing Mefoxin and the decision was made to place a 19- Mongolian Mike drain within the abdomen near the staple line. Seprafilm was placed within the abdomen and the abdominal wall fascia was closed with a running #1 looped PDS suture. The subcutaneous tissue was then reapproximated with 2-0 Vicryl sutures. The incision was then packed with quarter-inch plain Nu Gauze. The remaining 5 mm port sites were closed with johanna. Needle, sponge, instrument counts were correct 2 and the midline incision was covered with 4 x 4's. The patient was aroused from IV sedation, extubated in the operating room without complication, and transported to the recovery room in stable condition.
[2017-01-30] MEDS ORDERED: Piperacillin/Tazobactam 3.375 GM in D5% in Water (Mini-Bag+) 100 ML IVPB SCH (16:00)
--- NOTE | 2017-01-30 16:29 | Anesthesia Evaluation Post Op ---
Date of Encounter: 01/30/17 Time of Encounter: 16:27 - Vital Signs Vital Signs: Vital Signs/O2 Sat/Glucose, Most Current Temp Pulse Resp BP Pulse Ox 01/30/17 16:07 98.3 F 79 16 118/87 93 01/30/17 15:57 77 16 117/80 93 01/30/17 15:47 75 16 125/85 92 01/30/17 15:37 98.5 F 91 16 136/82 93 01/30/17 15:27 73 16 136/84 93 01/30/17 15:17 84 18 143/88 95 01/30/17 15:07 98.6 F 81 16 147/93 100 - Lungs Lungs: Clear Ascult./Percussion - Airway Airway: Non-obstructed - Cardiovascular Regular Rate - Mental Status Mental Status: Alert & Oriented, Answers Appropriately - Pain Pain Scale: 6 Pain Scale used: Numeric (1 - 10) - Nausea Vomiting Nausea Vomiting: Not Present - Hydration Hydration: Ice chips, Marks catheter - Discharge PostOp Status: Transfer Patient to floor Anes Supervising Prov Stmt: Pt seen/evaluated, VSS and pt has met criteria for discharge to floor. - MD Tania
[2017-01-30] MEDS ORDERED: Ketorolac 30 MG/ML VIAL IM SCH (18:00)
[2017-01-30] MEDS: Ketorolac 30 MG/ML VIAL IM SCH ×2 (18:24→23:58)
[2017-01-30] MEDS: 0.9 % Sodium Chloride 1,000 ML IVC SCH (18:24)
[2017-01-30] MEDS: Piperacillin/Tazobactam 3.375 GM in D5% in Water (Mini-Bag+) 100 ML IVPB SCH (23:55)
[2017-01-31] MEDS: 0.9 % Sodium Chloride 1,000 ML IVC SCH ×2 (04:25→15:06)
[2017-01-31] MEDS: Ketorolac 30 MG/ML VIAL IM SCH (05:45)
[2017-01-31 07:50] LABS: BUN/Creatinine Ratio 26 (6-26); Blood Urea Nitrogen 18 mg/dL (8-26); Calcium 9.1 mg/dL (8.6-10.8); Carbon Dioxide 22 mEq/L (19-29); Chloride 107 mEq/L (98-109); Glucose 121 mg/dL (70-99); Magnesium 1.5 mg/dL (1.6-2.6); Osmolality,Calculated 289 (280-300); Potassium 4.3 mEq/L (3.5-4.5); Sodium 138 mEq/L (136-145); eGFR For African Americans > 60 (> 60); eGFR For Non-African Americans > 60 (> 60)
[2017-01-31 08:06] LABS: Basophils % 0.1 %; Hematocrit 38.1 % (37.5-50.1); Hemoglobin 12.5 g/dL (12.9-16.9); Immature Granulocytes % 0.7 % (0-4); Lymphocytes # 1.1 K/mcL (0.6-4.6); Lymphocytes % 5.2 %; Mean Corpuscular HGB Conc 32.8 g/dL (31.6-35.5); Mean Corpuscular Hemoglobin 30.4 pg (28.0-33.3); Mean Corpuscular Volume 92.7 fL (83.0-100.0); Mean Platelet Volume 10.2 fL (9.4-12.4); Monocytes # 1.4 K/mcL (0.0-1.3); Monocytes % 6.9 %; Neutrophils # 18.2 K/mcL (1.6-8.9); Platelet Count 300 K/mcL (140-400); Red Blood Count 4.11 M/mcL (4.19-5.50); Red Cell Distribution Width 13.5 % (11.5-14.5); Segmented Neutrophils % 87.1 %
[2017-01-31] MEDS: Pantoprazole 40 MG VIAL IVP SCH (08:24)
[2017-01-31] MEDS: Piperacillin/Tazobactam 3.375 GM in D5% in Water (Mini-Bag+) 100 ML IVPB SCH ×2 (08:24→15:09)
[2017-01-31] MEDS ORDERED: Pantoprazole 40 MG VIAL IVP SCH (09:00)
--- NOTE | 2017-01-31 09:54 | General Surgery Progress Note ---
Date of Encounter: 01/31/17 Time of Encounter: 09:50 - Assessment and Plan (1) Diverticulitis of intestine with perforation and abscess Current Visit: No Status: Chronic POD #1 Laparoscopic assisted sigmoid resection NPO except ice chips while awaiting return of bowel function IV fluids- 100ml/hour IV antibiotics- Zosyn for contamination Supportive care/pain control Increase actvitity and ambulate hallways Wound care- daily packing to midline Continue EDWIGE drain IS every 1 hour while awake PPI therapy daily Remove ott catheter today Repeat am labs Qualifiers: Diverticulitis site: large intestine Diverticulitis bleeding: without bleeding Qualified Code(s): K57.20 - Diverticulitis of large intestine with perforation and abscess without bleeding (2) Asthma Current Visit: No Status: Chronic Duonebs Q6 hours IS every 1 hour while awake Qualifiers: Asthma severity: mild intermittent Asthma complication type: uncomplicated Qualified Code(s): J45.20 - Mild intermittent asthma, uncomplicated (3) DVT prophylaxis Current Visit: No Status: Acute Heparin 5,000 units SQ twice daily for DVT prophylaxis EPCDs to bilateral lower extremities for DVT prophylaxis Ambulate hallways TID with assistance Subjective Patient reports: no new complaints, no flatus, no bowel movement, afebrile, other (Patient reports being up to chair for 1 hour this morning. Pain well controlled.) Objective Vital Signs - Last 8 Hours Temp Pulse Resp BP Pulse Ox 01/31/17 07:56 98.2 F 67 16 108/69 94 01/31/17 03:21 97.9 F 59 16 98/60 94 Intake and Output 01/30/17 01/31/17 01/31/17 23:59 07:59 15:59 Intake Total 0 / 0 1100 / 1100 0 / 0 Output Total 40 / 40 520 / 520 Balance -40 / -40 580 / 580 0 / 0 Intake: IV Fluids 1100 / 1100 0.9 % Sodium Chloride 1, 1000 / 1000 000 ML @ 100 mls/hr IVC . Q10H RUMA Rx#:[id number] Zosyn 3.375 GM In 100 / 100 Dextrose 5% (Minibag+) 100 ML 100 ML @ 25 mls/hr IVPB Q8HR URMA Rx#: [id number] Oral 0 / 0 0 / 0 0 / 0 Output: Urine 0 / 0 Catheter 450 / 450 Wound Drainage 40 / 40 70 / 70 Right Abdomen 40 / 40 70 / 70 Other: Meal NPO NPO Percent of Meal Consumed 0% 0% # Bowel Movements 0 Weight 79.4 kg Blood Glucose* 143 113 Patient Weight 01/31/17 23:59 Weight 79.4 kg - General physical appearance well developed, well nourished, no distress - Eyes normal ocular movement - ENT normal mucosa, atraumatic, normocephalic - Neck Neck exam: trachea midline - Respiratory normal respiratory effort, clear to auscultation - Cardiovascular Cardiovascular exam: Present: RRR - Abdomen Abdomen: Present: bowel sounds present (hypoactive), soft, tender (expected post -operative tenderness), wound (Midline with small amount of serousang. drainage noted (1/4 inch packing); EDWIGE drain to bulb suction with serousang. drainage noted (110ml noted since surgery) ) - Incision Incision: Present: serosanguinous, open (Midline with 6 open area with 1/4 inch packing ) - Genitourinary other (ott catheter to SD with clear yellow urine noted) - Neurologic CN 2-12 grossly intact - Psychiatric oriented to time, oriented to person, oriented to place, speech is normal, memory intact - Labs 01/31/17 07:10 01/31/17 07:10 Diabetes panel 01/31/17 Range/Units 07:10 Sodium 138 (136-145) mEq/L Potassium 4.3 (3.5-4.5) mEq/L Chloride 107 (98-109) mEq/L Carbon Dioxide 22 (19-29) mEq/L BUN 18 (8-26) mg/dL Creatinine 0.69 L (0.72-1.25) mg/dL Glucose 121 H (70-99) mg/dL Calcium 9.1 (8.6-10.8) mg/dL Calcium panel 01/31/17 Range/Units 07:10 Calcium 9.1 (8.6-10.8) mg/dL Pituitary panel 01/31/17 Range/Units 07:10 Sodium 138 (136-145) mEq/L Potassium 4.3 (3.5-4.5) mEq/L Chloride 107 (98-109) mEq/L Carbon Dioxide 22 (19-29) mEq/L BUN 18 (8-26) mg/dL Creatinine 0.69 L (0.72-1.25) mg/dL Glucose 121 H (70-99) mg/dL Calcium 9.1 (8.6-10.8) mg/dL Adrenal panel 01/31/17 Range/Units 07:10 Sodium 138 (136-145) mEq/L Potassium 4.3 (3.5-4.5) mEq/L Chloride 107 (98-109) mEq/L Carbon Dioxide 22 (19-29) mEq/L BUN 18 (8-26) mg/dL Creatinine 0.69 L (0.72-1.25) mg/dL Glucose 121 H (70-99) mg/dL Calcium 9.1 (8.6-10.8) mg/dL - VTE Documentation of Mechanical Device: Graduated compression elastic hosiery Consult Discharge Plan - Plan Referrals: Jessica Espinoza CNP [Primary Care Provider] - Han Syed MD [Partnered Physician] - 02/11/17 10:30 am
[2017-01-31] MEDS: Beclomethasone 80mcg MDI IH SCH ×2 (11:27→21:24)
[2017-01-31] MEDS: Ipratropium/Albuterol Neb 3 ML IH SCH ×3 (11:27→21:24)
[2017-01-31] MEDS ORDERED: *HR* Heparin 5,000 UNIT/ML VIAL SQ SCH (15:15)
[2017-01-31] MEDS: Ketorolac 30 MG/ML VIAL IVP SCH (16:57)
[2017-01-31] MEDS: *HR* Heparin 5,000 UNIT/ML VIAL SQ SCH (16:59)
[2017-02-01] MEDS: Piperacillin/Tazobactam 3.375 GM in D5% in Water (Mini-Bag+) 100 ML IVPB SCH ×3 (00:24→15:25)
[2017-02-01] MEDS: Ketorolac 30 MG/ML VIAL IVP SCH ×4 (00:24→18:07)
[2017-02-01] MEDS: 0.9 % Sodium Chloride 1,000 ML IVC SCH ×3 (01:19→22:12)
[2017-02-01] MEDS: Ipratropium/Albuterol Neb 3 ML IH SCH ×4 (03:43→22:30)
[2017-02-01 04:18] LABS: Basophils % 0.2 %; Eosinophils # 0.1 K/mcL (0.0-0.6); Eosinophils % 0.7 %; Hematocrit 36.5 % (37.5-50.1); Hemoglobin 12.3 g/dL (12.9-16.9); Immature Granulocytes % 0.5 % (0-4); Lymphocytes # 2.1 K/mcL (0.6-4.6); Lymphocytes % 11.2 %; Mean Corpuscular HGB Conc 33.7 g/dL (31.6-35.5); Mean Corpuscular Hemoglobin 31.3 pg (28.0-33.3); Mean Corpuscular Volume 92.9 fL (83.0-100.0); Mean Platelet Volume 10.3 fL (9.4-12.4); Monocytes # 1.4 K/mcL (0.0-1.3); Monocytes % 7.7 %; Neutrophils # 14.6 K/mcL (1.6-8.9); Platelet Count 291 K/mcL (140-400); Red Blood Count 3.93 M/mcL (4.19-5.50); Red Cell Distribution Width 13.4 % (11.5-14.5); Segmented Neutrophils % 79.7 %
[2017-02-01 04:32] LABS: BUN/Creatinine Ratio 20 (6-26); Blood Urea Nitrogen 14 mg/dL (8-26); Calcium 8.7 mg/dL (8.6-10.8); Carbon Dioxide 25 mEq/L (19-29); Chloride 107 mEq/L (98-109); Glucose 107 mg/dL (70-99); Osmolality,Calculated 289 (280-300); Potassium 3.6 mEq/L (3.5-4.5); Sodium 139 mEq/L (136-145); eGFR For African Americans > 60 (> 60); eGFR For Non-African Americans > 60 (> 60)
[2017-02-01] MEDS: *HR* Heparin 5,000 UNIT/ML VIAL SQ SCH ×2 (06:09→18:07)
[2017-02-01] MEDS: Pantoprazole 40 MG VIAL IVP SCH (07:57)
[2017-02-01] MEDS: Beclomethasone 80mcg MDI IH SCH ×2 (10:04→22:32)
[2017-02-01] MEDS: *HR* HYDROmorphone (PF) 1 MG/ML SYRINGE IVP PRN ×3 (11:01→22:09)
--- NOTE | 2017-02-01 12:14 | General Surgery Progress Note ---
Date of Encounter: 02/01/17 Time of Encounter: 09:45 - Assessment and Plan (1) Diverticulitis of intestine with perforation and abscess Current Visit: Yes Status: Chronic Post-operative day #2 laparoscopic assisted sigmoid resection by Dr. Syed. The patient is resting comfortably but still complains of pain. He admits to flatus but no bowel movement. Advance diet to full liquid diet. Continue Zosyn Day #2 for contamination EDWIGE tube is draining well. Continue to monitor. Supportive and pain care Change packing daily. Continue PPI therapy Ambulate as tolerated with assistance. Strict I/Os Continue a.m. CBC and BMP Patient has complaints of lack of sleep at night. Order was inputted to not disturb patient unless required from 10pm to 6am. Qualifiers: Diverticulitis site: large intestine Diverticulitis bleeding: without bleeding Qualified Code(s): K57.20 - Diverticulitis of large intestine with perforation and abscess without bleeding (2) Asthma Current Visit: No Status: Chronic Encourage Insentive Spirometry Q1hour while awake. Continue Duoneb Qualifiers: Asthma severity: mild intermittent Asthma complication type: uncomplicated Qualified Code(s): J45.20 - Mild intermittent asthma, uncomplicated (3) DVT prophylaxis Current Visit: Yes Status: Acute Heparin 5000 units for DVT prophylaxis Subjective Patient reports: no new complaints, voiding w/o difficulty, flatus, no bowel movement, afebrile Objective Vital Signs - Last 8 Hours Temp Pulse Resp BP Pulse Ox 02/01/17 11:15 97.9 F 69 15 161/84 93 02/01/17 09:58 16 137/84 97 02/01/17 06:58 98.3 F 75 16 137/84 92 Intake and Output 01/31/17 02/01/17 02/01/17 23:59 07:59 15:59 Intake Total 100 / 100 1100 / 1100 0 / 0 Output Total 220 / 220 490 / 490 135 / 135 Balance -120 / -120 610 / 610 -135 / -135 Intake: IV Fluids 100 / 100 1100 / 1100 0.9 % Sodium Chloride 1, 1000 / 1000 000 ML @ 100 mls/hr IVC . Q10H RUMA Rx#:[id number] Zosyn 3.375 GM In 100 / 100 100 / 100 Dextrose 5% (Minibag+) 100 ML 100 ML @ 25 mls/hr IVPB Q8HR RUMA Rx#: [id number] Oral 0 / 0 0 / 0 0 / 0 Output: Urine 200 / 200 200 / 200 0 / 0 Wound Drainage 290 / 290 135 / 135 Right Abdomen 20 290 / 290 135 / 135 Other: Meal NPO NPO Percent of Meal Consumed 0% 0% # Bowel Movements 0 0 Weight 80.2 kg Blood Glucose* 115 110 Patient Weight 02/01/17 23:59 Weight 80.2 kg - General physical appearance well developed, well nourished, no distress - Eyes normal ocular movement - ENT atraumatic, normocephalic, CN 2-12 grossly intact - Neck Neck exam: trachea midline - Respiratory normal expansion, normal respiratory effort, clear to auscultation - Cardiovascular Cardiovascular exam: Present: RRR, no murmurs/rubs/gallops - Abdomen Abdomen: Present: bowel sounds present, soft, tender (expected post-operative tenderness), wound (EDWIGE tube with serosanguineous drainage of approximately 250ml ) - Incision Incision: Present: clean and dry, intact - Labs 02/01/17 03:36 02/01/17 03:36 Diabetes panel 02/01/17 Range/Units 03:36 Sodium 139 (136-145) mEq/L Potassium 3.6 (3.5-4.5) mEq/L Chloride 107 (98-109) mEq/L Carbon Dioxide 25 (19-29) mEq/L BUN 14 (8-26) mg/dL Creatinine 0.70 L (0.72-1.25) mg/dL Glucose 107 H (70-99) mg/dL Calcium 8.7 (8.6-10.8) mg/dL Calcium panel 02/01/17 Range/Units 03:36 Calcium 8.7 (8.6-10.8) mg/dL Pituitary panel 02/01/17 Range/Units 03:36 Sodium 139 (136-145) mEq/L Potassium 3.6 (3.5-4.5) mEq/L Chloride 107 (98-109) mEq/L Carbon Dioxide 25 (19-29) mEq/L BUN 14 (8-26) mg/dL Creatinine 0.70 L (0.72-1.25) mg/dL Glucose 107 H (70-99) mg/dL Calcium 8.7 (8.6-10.8) mg/dL Adrenal panel 02/01/17 Range/Units 03:36 Sodium 139 (136-145) mEq/L Potassium 3.6 (3.5-4.5) mEq/L Chloride 107 (98-109) mEq/L Carbon Dioxide 25 (19-29) mEq/L BUN 14 (8-26) mg/dL Creatinine 0.70 L (0.72-1.25) mg/dL Glucose 107 H (70-99) mg/dL Calcium 8.7 (8.6-10.8) mg/dL - VTE Documentation of Mechanical Device: Intermittent pneumatic compression device Consult Discharge Plan - Plan Referrals: Jessica Espinoza CNP [Primary Care Provider] - Han Syed MD [Partnered Physician] - 02/11/17 10:30 am
[2017-02-02] MEDS: Piperacillin/Tazobactam 3.375 GM in D5% in Water (Mini-Bag+) 100 ML IVPB SCH ×4 (00:03→23:32)
[2017-02-02] MEDS: Ketorolac 30 MG/ML VIAL IVP SCH ×4 (00:03→19:40)
[2017-02-02] MEDS: Ipratropium/Albuterol Neb 3 ML IH SCH ×4 (03:23→22:54)
[2017-02-02] MEDS: *HR* HYDROmorphone (PF) 1 MG/ML SYRINGE IVP PRN ×2 (03:28→08:46)
[2017-02-02] MEDS: *HR* Heparin 5,000 UNIT/ML VIAL SQ SCH ×2 (06:07→19:40)
[2017-02-02] MEDS: Beclomethasone 80mcg MDI IH SCH ×2 (07:09→22:56)
[2017-02-02] MEDS: Pantoprazole 40 MG VIAL IVP SCH (08:47)
[2017-02-02] MEDS: 0.9 % Sodium Chloride 1,000 ML IVC SCH (08:48)
--- NOTE | 2017-02-02 09:46 | General Surgery Progress Note ---
<Michael Duran - Last Filed: 02/02/17 09:48> Date of Encounter: 02/02/17 Time of Encounter: 09:00 - Assessment and Plan (1) Diverticulitis of intestine with perforation and abscess Current Visit: Yes Status: Chronic Post-operative day #3 laparoscopic assisted sigmoid resection by Dr. Syed. The patient is better rested today and states that pain is well managed. He admits to flatus but no bowel movement. Patient requests to advance to regular diet, but as he has not had a BM since surgery, I will continue full liquid diet for now and monitor his I/Os Continue Zosyn Day #3 for contamination EDWIGE tube is draining (sanguineous) well, continue with EDWIGE drain. Supportive and pain care. Change packing daily with plain packing. Continue PPI therapy Ambulate as tolerated with assistance. Strict I/Os Continue a.m. CBC and BMP Qualifiers: Diverticulitis site: large intestine Diverticulitis bleeding: without bleeding Qualified Code(s): K57.20 - Diverticulitis of large intestine with perforation and abscess without bleeding (2) Asthma Current Visit: No Status: Chronic Respiratory Exam is normal. Encourage Insentive Spirometry Q1hour while awake. Continue Duoneb Qualifiers: Asthma severity: mild intermittent Asthma complication type: uncomplicated Qualified Code(s): J45.20 - Mild intermittent asthma, uncomplicated (3) Leukocytosis Current Visit: Yes Status: Acute WBC = 18.4 today. Patient shows now signs of infection. He denies shortness of breath. His vital signs are normal and stable. Leukocytosis is expected post-surgically. Continue to monitor with a.m. labs. (4) DVT prophylaxis Current Visit: Yes Status: Acute Heparin 5000 units for DVT prophylaxis Subjective Patient reports: no new complaints, pain is less, tolerating liquids well ( Patient requests regular diet), voiding w/o difficulty, flatus, no bowel movement, afebrile Objective Vital Signs - Last 8 Hours Temp Pulse Resp BP Pulse Ox 02/02/17 07:09 16 96 02/02/17 06:19 97.5 F L 66 16 124/72 94 02/02/17 03:29 97.5 F L 59 16 145/83 95 Intake and Output 02/01/17 02/02/17 02/02/17 23:59 07:59 15:59 Intake Total 1460 / 1460 100 / 100 1000 / 1000 Output Total 390 / 390 460 / 460 Balance 1070 / 1070 -360 / -360 1000 / 1000 Intake: IV Fluids 1100 / 1100 100 / 100 1000 / 1000 0.9 % Sodium Chloride 1, 1000 / 1000 1000 / 1000 000 ML @ 100 mls/hr IVC . Q10H RUMA Rx#:[id number] Zosyn 3.375 GM In 100 / 100 100 / 100 Dextrose 5% (Minibag+) 100 ML 100 ML @ 25 mls/hr IVPB Q8HR RUMA Rx#: [id number] Oral 360 / 360 0 / 0 Output: Urine 250 / 250 300 / 300 Wound Drainage 140 / 140 160 / 160 Right Abdomen 140 / 140 160 / 160 Other: Meal Dinner # Bowel Movements 0 Weight 80.2 kg Patient Weight 02/02/17 23:59 Weight 80.2 kg - General physical appearance well developed, well nourished, no distress - Eyes normal ocular movement - ENT atraumatic, normocephalic, CN 2-12 grossly intact - Respiratory normal expansion, clear to auscultation - Cardiovascular Cardiovascular exam: Present: RRR, no murmurs/rubs/gallops - Abdomen Abdomen: Present: bowel sounds present (hypoactive), soft, tender (as expected post-surgical tenderness), wound (EDWIGE drain, sanguineous) - Incision Incision: Present: clean and dry, intact (with plain packing) - Integumentary no rash - Psychiatric oriented to time, oriented to person, oriented to place, memory intact - Labs 02/01/17 03:36 02/01/17 03:36 - VTE Documentation of Mechanical Device: Intermittent pneumatic compression device Consult Discharge Plan - Plan Referrals: Jessica Espinoza CNP [Primary Care Provider] - Han Syed MD [Partnered Physician] - 02/11/17 10:30 am <Han Syed - Last Filed: 02/02/17 11:42> Date of Encounter: 02/02/17 Objective Vital Signs - Last 8 Hours Temp Pulse Resp BP Pulse Ox 02/02/17 10:22 97.5 F L 64 16 124/76 95 02/02/17 07:09 16 96 02/02/17 06:19 97.5 F L 66 16 124/72 94 Intake and Output 0802/02/17 02/02/17 23:59 07:59 15:59 Intake Total 1460 / 1460 100 / 100 1360 / 1360 Output Total 390 / 390 460 / 460 20 / 20 Balance 1070 / 1070 -360 / -360 1340 / 1340 Intake: IV Fluids 1100 / 1100 100 / 100 1000 / 1000 0.9 % Sodium Chloride 1, 1000 / 1000 1000 / 1000 000 ML @ 100 mls/hr IVC . Q10H RUMA Rx#:[id number] Zosyn 3.375 GM In 100 / 100 100 / 100 Dextrose 5% (Minibag+) 100 ML 100 ML @ 25 mls/hr IVPB Q8HR RUMA Rx#: [id number] Oral 360 / 360 0 / 0 360 / 360 Output: Urine 250 / 250 300 / 300 0 / 0 Wound Drainage 140 / 140 160 / 160 20 / 20 Right Abdomen 140 / 140 160 / 160 20 / 20 Other: Meal Dinner Full Percent of Meal Consumed 80% # Bowel Movements 0 0 Weight 80.2 kg Patient Weight 02/02/17 23:59 Weight 80.2 kg - Labs 02/01/17 03:36 02/01/17 03:36 - Attending Attestation I examined this patient and my medical decision-making was reviewed with the Resident Physician. I agree with the documented findings, disposition and treatment plan as described except to the extent set forth below. I reviewed the above assessment and evaluation. Patient tolerating full liquids. No nausea or vomiting. Positive flatus. Incision clean dry and intact. Sears segments were from the EDWIGE drain. 4 soft food diet starting at dinner and will Hep-Lock IV fluids. Continue out of bed and ambulation. Likely DC planning for tomorrow.
[2017-02-02] MEDS ORDERED: *HR* HYDROmorphone (PF) 1 MG/ML SYRINGE IVP PRN (11:45)
[2017-02-02] MEDS: *HR* HYDROcodone/Acet 10/325 mg TABLET PO PRN ×2 (12:05→21:27)
[2017-02-03] MEDS: Ketorolac 30 MG/ML VIAL IVP SCH ×2 (00:40→06:28)
[2017-02-03] MEDS: *HR* HYDROcodone/Acet 10/325 mg TABLET PO PRN ×2 (04:53→11:13)
[2017-02-03] MEDS: Ipratropium/Albuterol Neb 3 ML IH SCH ×2 (05:39→08:09)
[2017-02-03] MEDS: *HR* Heparin 5,000 UNIT/ML VIAL SQ SCH (06:28)
[2017-02-03 06:48] VITALS: BP 118/75
[2017-02-03 07:52] LABS: Basophils # 0.1 K/mcL (0.0-0.2); Basophils % 0.5 %; Eosinophils # 0.6 K/mcL (0.0-0.6); Eosinophils % 5.3 %; Hematocrit 34.4 % (37.5-50.1); Hemoglobin 11.2 g/dL (12.9-16.9); Immature Granulocytes % 0.5 % (0-4); Lymphocytes # 1.2 K/mcL (0.6-4.6); Lymphocytes % 10.6 %; Mean Corpuscular HGB Conc 32.6 g/dL (31.6-35.5); Mean Corpuscular Hemoglobin 29.9 pg (28.0-33.3); Monocytes # 1.1 K/mcL (0.0-1.3); Neutrophils # 8.3 K/mcL (1.6-8.9); Platelet Count 264 K/mcL (140-400); Red Blood Count 3.74 M/mcL (4.19-5.50); Red Cell Distribution Width 13.1 % (11.5-14.5); Segmented Neutrophils % 73.1 %
[2017-02-03] MEDS: Beclomethasone 80mcg MDI IH SCH (08:09)
[2017-02-03] MEDS: Piperacillin/Tazobactam 3.375 GM in D5% in Water (Mini-Bag+) 100 ML IVPB SCH (08:41)
[2017-02-03] MEDS: Pantoprazole 40 MG VIAL IVP SCH (08:41)
--- NOTE | 2017-02-03 09:26 | Discharge Summary ---
<Maurizio Gaviria - Last Filed: 02/03/17 16:07> Date of Encounter: 02/03/17 Time of Encounter: 07:45 - Discharge Diagnosis (1) S/P laparoscopic-assisted sigmoidectomy Priority: Primary Status: Acute (2) Diverticulitis of intestine with perforation and abscess Priority: Primary Status: Chronic Qualifiers: Diverticulitis site: large intestine Diverticulitis bleeding: without bleeding Qualified Code(s): K57.20 - Diverticulitis of large intestine with perforation and abscess without bleeding - Discharge Medications Prescriptions: Amoxicillin/Clavulanate [Augmentin] 875 mg PO BIDWM #28 tablet Docusate [Colace] 100 mg PO BID #16 capsule HYDROcodone/Acet 10/325 mg [[place] 10-325 mg] 1 each PO Q6H PRN #32 tab PRN Reason: Moderate Pain Home Medications: Beclomethasone Diprop 80mcg [QVAR 80 mcg] 3 puff IH BID 12/08/16 [History] Omeprazole [PriLOSEC] 20 mg PO DAILY 12/08/16 [History] Amoxicillin/Clavulanate [Augmentin] 875 mg PO BIDWM #28 tablet 02/03/17 [Rx] Docusate [Colace] 100 mg PO BID #16 capsule 02/03/17 [Rx] HYDROcodone/Acet 10/325 mg [[place] 10-325 mg] 1 each PO Q6H PRN #32 tab 02/03/17 [Rx] Allergies/Adverse Reactions: 3 Allergy/AdvReac Type Severity Reaction Status Date / Time acetaminophen Allergy Severe Hives Verified 12/08/16 15:49 atorvastatin AdvReac Muscle Pain Verified 01/30/17 10:45 Oxycodone AdvReac Rash Verified 01/30/17 10:45 General Surgery Exam Initial Vital Signs Temp Pulse Resp BP Pulse Ox 98.2 F 88 18 115/82 96 01/30/17 10:09 01/30/17 10:09 01/30/17 10:09 01/30/17 10:09 01/30/17 10:09 - General physical appearance well developed, well nourished, no distress - Eyes normal ocular movement - ENT atraumatic, normocephalic - Neck trachea midline - Respiratory normal expansion, normal respiratory effort - Cardiovascular Cardiovascular exam: Present: RRR - Abdomen Abdomen general surgery: Present: bowel sounds present, soft, tender (expected postoperative tenderness) - Incision Incision: Present: draining (EDWIGE drain), serosanguinous - Musculoskeletal Present: normal posture - Psychiatric Psychiatric general surgery: Present: appropriate, speech is normal Date of admission: 01/30/17 16:46 Primary care physician: Jessica Espinoza CNP Discharging clinician: Maurizio Gaviria Anticipated date of discharge: 02/03/17 - Patient Status Disposition: Home, Self-Care Condition: Good Functional capacity at discharge: independent ambulation Overall status at discharge: patient is progressing back to baseline - Discharge Instructions Follow Up With: Han Syed MD [Partnered Physician] - 02/11/17 10:30 am - Diet and Activity Activity: resume usual activities as tolerated Diet: advance to your usual diet - Hospital Course Hospital course: Mr. Abraham is a 56 year old male with PMH of diverticulitis who underwent laparoscopic-assisted sigmoid resection on 01/30/[address] Syed without complication. Patient progressively improved following the procedure, with decreasing pain and gradual return of bowel function. He tolerated dinner last night and breakfast this morning and reports feeling ready to go home. - Time Spent with Patient Total time spent providing and/or coordinating discharge services: Less than 30 minutes Labs on day of discharge: Labs from last 24 hours 02/03/17 07:33 WBC 11.4 H RBC 3.74 L Hgb 11.2 L Hct 34.4 L MCV 92.0 MCH 29.9 MCHC 32.6 RDW 13.1 Plt Count 264 MPV 10.0 Immature Gran % 0.5 Seg Neutrophils % 73.1 Lymphocytes % 10.6 Monocytes % 10.0 Eosinophils % 5.3 Basophils % 0.5 Neutrophils # 8.3 Lymphocytes # 1.2 Monocytes # 1.1 Eosinophils # 0.6 Basophils # 0.1 - Impressions ITS Impressions KUB X-Ray 01/30/17 15:18 IMPRESSION: Nasogastric tube is within the right lower lobe bronchus. Recommend repositioning. Critical results were called by Dr. Leora Toure MD to Han Syed on 01/30/2017 at 15:50. Nasogastric tube has already been removed. D/ / Leora Toure MD / Leora Toure MD Interpreting Provider: Leora Toure MD <KunalHan M - Last Filed: 02/05/17 12:39> Date of Encounter: 02/03/17 General Surgery Exam Initial Vital Signs Temp Pulse Resp BP Pulse Ox 98.2 F 88 18 115/82 96 01/30/17 10:09 01/30/17 10:09 01/30/17 10:09 01/30/17 10:09 01/30/17 10:09 Date of admission: 01/30/17 16:46 Primary care physician: Jessica Espinoza CNP - Hospital Course Hospital course: Mr. Abraham is a 56 year old male - Time Spent with Patient Total time spent providing and/or coordinating discharge services: - Impressions ITS Impressions KUB X-Ray 01/30/17 15:18 IMPRESSION: Nasogastric tube is within the right lower lobe bronchus. Recommend repositioning. Critical results were called by Dr. Leora Toure MD to Han Syed on 01/30/2017 at 15:50. Nasogastric tube has already been removed. D/ / Leora Toure MD / Leora Toure MD Interpreting Provider: Leora Toure MD - Attending Attestation I agree with the above plan.
== END 2017-02-03 12:00 | disposition home or self-care (01) | DRG 330 ==
LOC: SAMDAY 09:53 → 3ANU 16:46
PROVIDERS: ADMIT Surgery; ATTEND Surgery